=== PATIENT | female | born 1960 | race Caucasian/White ===

== ENCOUNTER 2019-06-15 06:00 | Outpatient (RCR) | payer BC, SELFPAY | END 2019-06-29 23:59 | disposition home or self-care (01) | LOC: GPT 06:00 | PROVIDERS: Family Provider Family Medicine; PCP Family Medicine; Referring Provider Orthopaedic Surgery; Visit Provider Orthopaedic Surgery | DX: Z47.89 Encounter for other orthopedic aftercare (principal); S72.91XD Unspecified fracture of right femur, subsequent encounter for closed fracture with routine healing | CPT/HCPCS: 97032; 97110; 97161; 97530 ==

== ENCOUNTER 2019-06-30 06:00 | Outpatient (RCR) | payer BC, SELFPAY | END 2019-07-30 23:59 | disposition home or self-care (01) | LOC: GPT 06:00 | PROVIDERS: PCP Family Medicine; Referring Provider Orthopaedic Surgery; Visit Provider Orthopaedic Surgery | DX: Z47.89 Encounter for other orthopedic aftercare (principal); S72.91XD Unspecified fracture of right femur, subsequent encounter for closed fracture with routine healing; M79.661 Pain in right lower leg; M25.651 Stiffness of right hip, not elsewhere classified | CPT/HCPCS: 97110; 97112; 97116; 97164; 97530 ==

== ENCOUNTER 2019-07-31 06:00 | Outpatient (RCR) | payer BC, SELFPAY | END 2019-08-29 23:59 | disposition home or self-care (01) | LOC: GPT 06:00 | PROVIDERS: PCP Family Medicine; Visit Provider Orthopaedic Surgery | DX: Z47.89 Encounter for other orthopedic aftercare (principal); S72.91XD Unspecified fracture of right femur, subsequent encounter for closed fracture with routine healing; X58.XXXD Exposure to other specified factors, subsequent encounter | CPT/HCPCS: 97110; 97112; 97116; 97530 ==

== ENCOUNTER → 2019-10-23 11:56 | Outpatient (BNVA) | payer BC, SELFPAY | PROVIDERS: PCP Family Medicine; Visit Provider Family Medicine | DX: M62.81 Muscle weakness (generalized) (principal); J41.8 Mixed simple and mucopurulent chronic bronchitis; E11.9 Type 2 diabetes mellitus without complications; R29.898 Other symptoms and signs involving the musculoskeletal system; M81.0 Age-related osteoporosis without current pathological fracture | CPT/HCPCS: 36415; 80053; 83036; 85025 ==

== ENCOUNTER 2019-11-22 08:40 | Outpatient (CLI) | payer BC, SELFPAY ==
--- NOTE | 2019-11-22 | MR_ITS ---
WS: [id number] MRI CERVICAL SPINE NONCONTRAST TECHNIQUE: Sagittal T1, T2 and STIR imaging. Axial T2, gradient, and fiesta imaging. CLINICAL INFORMATION: UNSPECIFIED ABNOMALITIES OF GAIT AND MOBILITY COMPARISON: None. FINDINGS: Straightening of the normal cervical lordosis. Moderate spondylitic changes. Severe spinal canal narr owing in the cervical spine at C4-C6 with T2 signal abnormality in the cervical cord. Impingement and flattening of the cervical cord at C4-C5, C5-C6, C6-7. Edema in the left C4-5 facets with small face t effusion. C2-C3: Disc osteophyte complex with endplate ridging. Mild bilateral foraminal narrowing. Spinal dheeraj l is patent. C3-C4: Disc osteophyte complex with endplate ridging. Mild central canal stenosis. Mild to moderate b ilateral bony foraminal narrowing. Mild facet arthropathy. C4-C5: Disc osteophyte complex with endplate ridging. Severe central canal stenosis with impingement and flattening of the cervical cord. Signal abnormality in the underlying cervical cord. Severe right and moderate left bony foraminal narrowing. Moderate facet arthropathy. C5-C6: Slight retrolisthesis. Disc osteophyte complex with central osteophyte protrusion. Severe cent ral canal stenosis with impingement and flattening of the cervical cord. Severe bilateral bony forami nal narrowing. Mild facet arthropathy. C6-C7: Disc osteophytic complex with severe central canal stenosis. Flattening and impingement on the cervical cord. Severe bilateral foraminal narrowing with moderate facet arthropathy. C7-T1: Spinal canal is patent. Mild to moderate bilateral bony foraminal narrowing. Small bilateral thyroid nodules. This could followed up with ultrasound on an elective basis MR/MR cervical spin wo con* [id number] IMPRESSION: 1. Severe central canal stenosis C4-C6 with impingement flattening of the cerv ical cord. Underlying signal abnormality in the cervical cord at C4-C6. 2. Multilevel moderate to severe bony foraminal narrowing worse at right C4-C5 , bilateral C5-C6, and bilateral C6-7. 3. Small bilateral thyroid nodules. This can be followed up with ultrasound on an elective basis. 4. Edema in the left C4-5 facets with a small facet effusion consistent with s ynovitis/degenerative change.
--- NOTE | 2019-11-22 08:45 | MR_ITS ---
WS: [id number] MRI THORACIC SPINE WITHOUT CONTRAST TECHNIQUE: Sagittal T1, T2 and STIR imaging. Axial T2 imaging. Noncontrast imaging obtained. CLINICAL INFORMATION: R26.9 Unspecified abnormalities of gait and mobility COMPARISON: None. FINDINGS: Moderate thoracic kyphosis. No high-grade central canal narrowing. Cord signal is normal. Chronic ant erior wedging in the mid thoracic spine worse at T5, T9, T11, and T12. Tiny amount of edema along th e left inferior endplate at T9 suggestive of more recent mild compression in this area Tiny shallow disc protrusions at T7-T8, T9-T10, T10-T11, T11-T12. Mild central canal stenosis at T10- T11 and T11-T12. Mild bony foraminal narrowing at left T9-T10, right T10-11, bilateral T11-12 worse in the right, and right T12-L1. Moderate facet arthropathy in the lower thoracic spine. Normal caliber thoracic aorta. MR/MR thoracic spin wo con* [id number] IMPRESSION: 1. Moderate thoracic kyphosis. Cord signal is normal. No high-grade thoracic c anal stenosis. 2. Chronic appearing compression at T9 vertebral body. Tiny amount of edema al mary the left T9 inferior endplate suggestive of more recent compression in this area. 3. Otherwise no acute compression fractures. 4. Chronic mild compression with anterior wedging at T5, T11 and T12. 5. Mild central canal stenosis T10-T11 and T11-T12. 6. Moderate facet arthropathy lower thoracic spine.
--- NOTE | 2019-11-22 10:15 | MR_ITS ---
WS: [id number] MRI LUMBAR SPINE NONCONTRAST TECHNIQUE: Sagittal T1, T2 and STIR imaging. Axial T1 and T2 imaging. CLINICAL INFORMATION: R29.898 Other symptoms and signs involving the musculoske... COMPARISON: None. FINDINGS: Mild lumbar curve. No acute compression. Chronic anterior wedging at T11 and T12. Grade 1 anterolisth esis L5 on S1 measuring 7 mm. No high-grade central canal stenosis. L1-L2: Mild annular bulging. Mild facet arthropathy. Spinal canal and foramen are patent. L2-L3: Normal. L3-L4: Mild annular bulging with mild central canal stenosis. Mild facet arthropathy. Mild left haleigh inal narrowing. L4-L5: Mild disc bulging with mild central canal stenosis. Impingement on the right subarticular rece ss and traversing right L5 nerve root. Mild to moderate right and no significant left foraminal narro wing. Moderate facet arthropathy. L5-S1: Grade 1 anterolisthesis. Disc bulging in combination with facet arthropathy and ligament flavu m hypertrophy results in severe central canal stenosis. Impingement traversing S1 nerve roots. Modera te to advanced arthropathy. Severe left and moderate right bony foraminal narrowing. Impingement on t he exiting L5 nerve roots. Left renal cortical atrophy. Left renal cysts. MR/MR lumbar spine wo con* [id number] IMPRESSION: 1. Mild lumbar curve. No acute compression. Chronic anterior wedging at T11 an d T12. 2. Severe central canal stenosis L5-S1 due to grade 1 anterolisthesis with adv anced facet arthropathy and ligamentum flavum hypertrophy. 3. Mild central canal stenosis L4-5 with impingement right subarticular recess and traversing right L5 nerve root. Mild to moderate right L4-5 foraminal narr owing. 4. Severe left and moderate right L5-S1 foraminal narrowing impinges the exiti ng L5 nerve roots.
== END 2019-11-22 08:41 | disposition home or self-care (01) ==
LOC: RADSHAW 08:48
PROVIDERS: PCP Family Medicine; Visit Provider Nurse Practitioner Family
DX: R26.9 Unspecified abnormalities of gait and mobility (principal); R29.898 Other symptoms and signs involving the musculoskeletal system; M21.379 Foot drop, unspecified foot; M81.0 Age-related osteoporosis without current pathological fracture; M48.061 Spinal stenosis, lumbar region without neurogenic claudication; M48.07 Spinal stenosis, lumbosacral region; M47.817 Spondylosis without myelopathy or radiculopathy, lumbosacral region; M40.204 Unspecified kyphosis, thoracic region; S22.079A Unspecified fracture of T9-T10 vertebra, initial encounter for closed fracture; X58.XXXA Exposure to other specified factors, initial encounter; M48.04 Spinal stenosis, thoracic region; M47.814 Spondylosis without myelopathy or radiculopathy, thoracic region; M48.02 Spinal stenosis, cervical region; E04.1 Nontoxic single thyroid nodule; R60.0 Localized edema
CPT/HCPCS: 72141; 72146; 72148

== ENCOUNTER 2019-12-01 06:00 | Outpatient (RCR) | payer BC, SELFPAY | END 2019-12-30 23:59 | disposition home or self-care (01) | LOC: GPT 06:00 | PROVIDERS: PCP Family Medicine; Referring Provider Neurological Surgery; Visit Provider Neurological Surgery | DX: M47.22 Other spondylosis with radiculopathy, cervical region (principal); M47.12 Other spondylosis with myelopathy, cervical region; M48.02 Spinal stenosis, cervical region | CPT/HCPCS: 97110; 97112; 97116; 97162; 97530 ==

== ENCOUNTER → 2020-04-01 11:01 | Outpatient (BNVA) | payer BC, SELFPAY | PROVIDERS: PCP Family Medicine; Visit Provider Nurse Practitioner Family | DX: M81.0 Age-related osteoporosis without current pathological fracture (principal) | CPT/HCPCS: 82310 ==

== ENCOUNTER → 2020-06-03 08:55 | Outpatient (BNVA) | payer BC, SELFPAY | PROVIDERS: PCP Family Medicine; Visit Provider Nurse Practitioner Family | DX: E87.6 Hypokalemia (principal); Z79.899 Other long term (current) drug therapy | CPT/HCPCS: 80048 ==

== ENCOUNTER → 2020-07-10 09:40 | Outpatient (BNVA) | payer BC, SELFPAY | PROVIDERS: PCP Family Medicine; Visit Provider Nurse Practitioner Family | DX: E87.1 Hypo-osmolality and hyponatremia (principal) | CPT/HCPCS: 80048 ==

== ENCOUNTER → 2020-08-23 14:38 | Outpatient (BNVA) | payer BC, SELFPAY | PROVIDERS: PCP Family Medicine; Visit Provider Nurse Practitioner Family | DX: E87.1 Hypo-osmolality and hyponatremia (principal) | CPT/HCPCS: 80048 ==

== ENCOUNTER → 2020-10-18 07:50 | Outpatient (BNVA) | payer BC, SELFPAY | PROVIDERS: PCP Family Medicine; Visit Provider Family Medicine | DX: E87.1 Hypo-osmolality and hyponatremia (principal); E87.6 Hypokalemia | CPT/HCPCS: 80048 ==

== ENCOUNTER → 2020-11-01 09:49 | Outpatient (BNVA) | payer BC, SELFPAY | PROVIDERS: PCP Family Medicine; Visit Provider Nurse Practitioner Family | DX: E87.1 Hypo-osmolality and hyponatremia (principal); I10 Essential (primary) hypertension; Z79.899 Other long term (current) drug therapy | CPT/HCPCS: 80053; 80061; 81000; 83935; 84443; 84550 ==

== ENCOUNTER → 2021-10-17 09:00 | Outpatient (BNVA) | payer OTHER, SELFPAY | PROVIDERS: PCP Family Medicine; Visit Provider Nurse Practitioner Family | DX: M54.9 Dorsalgia, unspecified (principal); G89.29 Other chronic pain; I10 Essential (primary) hypertension; E55.9 Vitamin D deficiency, unspecified; M81.0 Age-related osteoporosis without current pathological fracture | CPT/HCPCS: 80053; 80061; 82306; 84443 ==

== ENCOUNTER → 2021-10-27 08:47 | Outpatient (BNVA) | payer OTHER, SELFPAY | PROVIDERS: PCP Family Medicine; Visit Provider Nurse Practitioner Family | DX: R74.8 Abnormal levels of other serum enzymes (principal); E87.1 Hypo-osmolality and hyponatremia | CPT/HCPCS: 80053; 82977 ==

== ENCOUNTER 2021-11-07 06:00 | Outpatient (RCR) | payer OTHER, SELFPAY | END 2021-11-28 23:59 | disposition home or self-care (01) | LOC: SPT 06:00 | PROVIDERS: PCP Family Medicine; Visit Provider Nurse Practitioner Family | DX: M54.9 Dorsalgia, unspecified (principal); G89.29 Other chronic pain | CPT/HCPCS: 97110; 97112; 97140; 97161 ==

== ENCOUNTER 2021-11-29 06:00 | Outpatient (RCR) | payer OTHER, SELFPAY | END 2021-12-29 23:59 | disposition home or self-care (01) | LOC: SPT 06:00 | PROVIDERS: PCP Family Medicine; Visit Provider Nurse Practitioner Family | DX: M54.9 Dorsalgia, unspecified (principal); G89.29 Other chronic pain | CPT/HCPCS: 97110; 97140; 97164 ==

== ENCOUNTER 2021-12-30 06:00 | Outpatient (RCR) | payer OTHER, SELFPAY | END 2022-01-19 23:59 | disposition home or self-care (01) | LOC: SPT 06:00 | PROVIDERS: PCP Family Medicine; Visit Provider Nurse Practitioner Family | DX: M54.9 Dorsalgia, unspecified (principal); G89.29 Other chronic pain | CPT/HCPCS: 97110; 97112; 97140; 97164 ==

== ENCOUNTER → 2022-12-17 14:25 | Outpatient (BNVA) | payer OTHER, SELFPAY | PROVIDERS: PCP Family Medicine; Visit Provider Nurse Practitioner Family | DX: I10 Essential (primary) hypertension (principal); E55.9 Vitamin D deficiency, unspecified; M81.0 Age-related osteoporosis without current pathological fracture | CPT/HCPCS: 80053; 80061; 82306; 84443; 85025 ==

== ENCOUNTER → 2023-12-27 11:30 | Outpatient (BNVA) | payer MEDICARE, SELFPAY | PROVIDERS: PCP Family Medicine; Visit Provider Nurse Practitioner Family | DX: I10 Essential (primary) hypertension (principal); E55.9 Vitamin D deficiency, unspecified | CPT/HCPCS: 80053; 80061; 82306 ==

== ENCOUNTER → 2024-12-22 09:15 | Outpatient (BNVA) | payer MEDICARE, SELFPAY | PROVIDERS: PCP Family Medicine; Visit Provider Nurse Practitioner Family | DX: E55.9 Vitamin D deficiency, unspecified (principal); I10 Essential (primary) hypertension | CPT/HCPCS: 80053; 80061; 82306; 82607 ==

== ENCOUNTER 2025-01-16 14:20 | Outpatient (CLI) | payer MEDICARE, SELFPAY ==
--- NOTE | 2025-01-16 15:00 | MM_ITS ---
WS: [id number] BILATERAL 3D TOMOSYNTHESIS DIGITAL SCREENING MAMMOGRAPHY WITH CAD CLINICAL INFORMATION: Z12.39 - Encounter for other screening for malignant neop... HISTORY: Screening mammogram. No current complaints. COMPARISON: 2019 TECHNIQUE: Bilateral CC and MLO views. FINDINGS: The breasts are composed of heterogeneous fibroglandular density tissue, which can limit the detection of small underlying mass lesions. No suspicious mass, asymmetry, calcifications, or architectural distortion. No evidence of malignancy. Punctate and lucent centered calcifications. MM/MM [facility] tomosynthesis [id number] IMPRESSION: DENSITY: The breasts are heterogeneously dense, which may obscure small masses. BI-RADS: 2 - Benign FOLLOW UP: 1 Year Follow-up Recommend return to annual screening mammography.
== END 2025-01-16 14:21 | disposition home or self-care (01) ==
LOC: MOBLMAM 14:23
PROVIDERS: PCP Nurse Practitioner Family; Visit Provider Nurse Practitioner Family
DX: Z12.31 Encounter for screening mammogram for malignant neoplasm of breast (principal); R92.323 Mammographic fibroglandular density, bilateral breasts; R92.1 Mammographic calcification found on diagnostic imaging of breast
CPT/HCPCS: 77063; 77067